=== PATIENT | female | born 1990 | race Caucasian/White ===

== ENCOUNTER 2016-04-26 17:09 | Emergency (ER) | payer OTHER ==
[2016-04-26 17:28] VITALS: BP 110/62
== END 2016-04-26 19:41 | disposition left against medical advice (07) ==
LOC: ED 17:09
DX: R11.10 Vomiting, unspecified (principal)

== ENCOUNTER 2016-04-27 18:13 | Emergency (ER) | payer OTHER ==
[2016-04-27] MEDS ORDERED: cefTRIAXone VIAL(*) 1,000 MG in NS 0.9% 50 ML* 50 ML IVPB ONE (18:50)
[2016-04-27] MEDS ORDERED: NS 0.9% 1000 ML* 1,000 ML BOLUS ONE (18:50)
--- NOTE | 2016-04-27 19:15 | UC ---
Respiratory Complaint HPI - HPI Summary HPI Summary: 26 YO FEMALE PRESENTS WITH A 7 DAY HX OF FEVER/CHILLS/COUGH/SOB/FATIGUE HAS BEEN ANOREXIC AND HAD NAUSEA NO VOMITING MYALGIAS AND LEG CRAMPS NO HER ABD HURTS WHEN SHE COUGH NO UTI SYMPTOMS URINE HAS BEEN DARK - History of Current Complaint Chief Complaint: UC Stated Complaint: ABD PAIN,DIZZY,BLEEDING Time Seen by Provider: 04/27/16 18:37 Hx Obtained From: Patient Hx Last Menstrual Period: 04/16/16 Onset/Duration: Gradual Onset, Lasting Days - 7 Timing: Constant Severity Initially: Mild Severity Currently: Severe Pain Intensity: 8 Pain Scale Used: 0-10 Numeric Character: Cough: Productive Aggravating Factors: Exertion, Deep Breaths Alleviating Factors: Nothing Associated Signs And Symptoms: Positive: Dyspnea, Fever, Chills. Negative: Pleuritic Chest Pain, Wheezing, Hemoptysis, Dizziness, Calf Pain, Calf Swelling , Edema, URI, Nasal Congestion, Hoarseness - Allergies/Home Medications Allergies/Adverse Reactions: Allergies Allergy/AdvReac Type Severity Reaction Status Date / Time No Known Allergies Allergy Verified 04/27/16 18:32 PMH/Surg Hx/FS Hx/Imm Hx Endocrine History Of: Denies: Diabetes, Thyroid Disease Cardiovascular History Of: Denies: Cardiac Disorders, Hypertension Respiratory History Of: Reports: Pneumonia - X1 Denies: COPD, Asthma GI/ History Of: Denies: Ulcer Psychological History Of: Reports: Anxiety - Surgical History Surgical History: Yes Surgery Procedure, Year, and Place: DENTAL EXTRACTIONS - Family History Known Family History: Positive: Hypertension Family History: NON CONTRIBUTORY - Social History Alcohol Use: Occasionally Alcohol Amount: TWICE A WEEK Substance Use Type: Marijuana Substance Use Comment - Amount & Last Used: none since Smoking Status (MU): Heavy Every Day Tobacco Smoker Type: Cigarettes Amount Used/How Often: 1/2 ppd Length of Time of Smoking/Using Tobacco: started age 13 Have You Smoked in the Last Year: Yes Household Exposure Type: Cigarettes - Immunization History Most Recent Influenza Vaccination: Most Recent Tetanus Shot: 04/22/14 Most Recent Pneumonia Vaccination: na Review of Systems Constitutional: Fever, Chills, Fatigue Eyes: Negative ENT: Negative Respiratory: Shortness Of Breath, Cough Gastrointestinal: Abdominal Pain - WHEN COUGHING Genitourinary: Hematuria - ? Motor: Negative Neurovascular: Negative Musculoskeletal: Myalgia Neurological: Headache Psychological: Negative All Other Systems Reviewed And Are Negative: Yes Physical Exam Triage Information Reviewed: Yes Appearance: Well-Appearing, No Pain Distress, Well-Nourished Vital Signs: Initial Vital Signs Temp 101.2 F 04/27/16 18:26 Pulse 137 04/27/16 18:26 Resp 14 04/27/16 18:26 BP 111/70 04/27/16 18:26 Pulse Ox 93 04/27/16 18:26 Vital Signs Reviewed: Yes Eyes: Positive: Conjunctiva Clear ENT: Positive: Hearing grossly normal, Pharynx normal, TMs normal. Negative: Nasal congestion, Nasal drainage, Trismus, Muffled/hoarse voice Neck exam: Normal Neck: Positive: Supple, Nontender, No Lymphadenopathy Respiratory: Positive: Chest non-tender, No respiratory distress, No accessory muscle use, Rhonchi, Wheezing Cardiovascular: Positive: RRR, No Murmur, Tachycardia - STATES SHE IS ALWAYS TACHYCARDIC Abdomen Description: Positive: Nontender, Soft. Negative: CVA Tenderness (R), CVA Tenderness (L) Musculoskeletal: Positive: ROM Intact, No Edema Neurological: Positive: Alert, Muscle Tone Normal Psychological Exam: Normal Skin Exam: Normal Skin: Negative: rashes UC Diagnostic Evaluation - Laboratory O2 Sat by Pulse Oximetry: 93 - LOW - Radiology Xray Interpretation: Positive (See Comments) Radiology Interpretation Completed By: Radiologist Re-Evaluation - Re-Evaluation First Eval Re-Evaluation Time: 21:37 Change: Improved - WANT TO GO HOME Respiratory Course/Dx - Course Course Of Treatment: AT DD/C FEELS BETTER. DECLINES TRANSFER TO [facility] ED - Differential Dx/Diagnosis Provider Diagnoses: PNEUMONIA. DEHYDRATION Discharge - Discharge Plan Condition: Stable Disposition: HOME Prescriptions: Amoxicillin/Clavulanate TAB* [Augmentin TAB 875*] 875 mg PO BID #20 tab Ondansetron TAB* [Zofran Tab*] 4 mg PO Q6H PRN #10 tab PRN Reason: Nausea Referrals: No Primary Care Phys,NOPCP [Primary Care Provider] -
--- NOTE | 2016-04-27 19:21 | RAD ---
Indication: Cough and fever. 2 views of the chest are reviewed including dual energy PA views. Airspace disease is noted in the lung bases worse on the right than on the left. This is consistent with bibasilar pneumonia. There may be some underlying interstitial disease noted. IMPRESSION: Bibasilar airspace disease worse on the right than on the left consistent with pneumonia. This was not present on prior exams.
[2016-04-27] MEDS ORDERED: cefTRIAXone VIAL(*) 1,000 MG VIAL ONE (19:46)
[2016-04-27] MEDS ORDERED: Ondansetron INJ* 2 MG/ML VIAL IV ONE (20:29)
[2016-04-27] MEDS ORDERED: Ipratropium 0.5MG/2.5ML NEB* 0.5 MG/2.5 ML NEB.SOLN INH ONE (20:29)
[2016-04-27] MEDS ORDERED: Albuterol 2.5 MG/3 ML NEB.SOL* (0.083%) INH ONE (20:29)
[2016-04-27 21:17] VITALS: BP 102/63
[2016-04-27] MEDS ORDERED: Albuterol HFA INHALER* 8 gm MDI INH ONE (21:34)
[2016-04-28 10:29] LABS: Hematocrit 35 % (35-47); Hemoglobin 11.8 g/dl (12.0-16.0); Mean Corpuscular HGB Conc 33 g/dl (31-36); Mean Corpuscular Hemoglobin 28 pg (27-31); Mean Corpuscular Volume 83 fL (80-97); Red Blood Count 4.28 10^6/ul (4.0-5.4); Red Cell Distribution Width 15 % (10.5-15); White Blood Count 17.8 10^3/ul (3.5-10.8)
[2016-04-28 10:31] LABS: Comments Flag Yes
[2016-04-28 10:33] LABS: Add Diff/Slide Review? Slide Review Added
[2016-04-28 11:13] LABS: Mean Platelet Volume 11 um3 (7.4-10.4)
== END 2016-04-27 22:03 | disposition home or self-care (01) ==
LOC: UCEAST 18:13
DX: J18.9 Pneumonia, unspecified organism (principal); E86.0 Dehydration; Z32.02 Encounter for pregnancy test, result negative; F17.210 Nicotine dependence, cigarettes, uncomplicated
CPT/HCPCS: 36415; 71020; 81002; 81025; 85025; 87086; 87502; 96361; 96365; 96375; 96376; 99213; A9270-GY; G0463; J0696; J2405; J7644

== ENCOUNTER 2016-08-27 10:27 | Emergency (ER) | payer OTHER ==
[2016-08-27 10:50] VITALS: BP 123/86
--- NOTE | 2016-08-27 11:35 | UC ---
Ritu Billings Matthew, [facility] on 08/27/16 at 1126 . Complaint Female HPI - HPI Summary HPI Summary: In Room Note: A 26 y/o female presents to c/o gradually worsening dysuria since a week ago. She's also c/o of constant vaginal bleeding and lower abdominal cramping since 3 days ago. Associated symptoms include vaginal discharge today w/ green mucous, back pain - since 2 days ago, nausea, and fatigue. She denies fever, vomiting, diarrhea, dizziness, and SOB. The back pain pain is worse lying down. She took plan B 4-5 days ago after unprotected intercourse and the vaginal bleeding began the next day. Initially it was brown in color. She states that amount is similar to a period. She's taken plan B in the past without compilation or bleeding. LNMP was the first of the month. No Hx of kidney infections. Her last UTI was when she was 16 y/o. Possible Hx of ovarian cyst. FHx of HTN and PR - mother. The patient has been 3 times. Note: Patient here for possible UTI. PMHx significant for visit on 06/28/15 for vaginal bleeding with prior Hx of a chemical 3 weeks prior to that visit. Diagnosis at that time was subacute endometritis. Nurse's Note: STARTED WITH PAIN ON URINATION ABOUT 1 WEEK AGO. NOW THINKING IT IS IN HER KIDNEYS. HAD ONE UTI WHEN SHE WAS 16. NO HX OF KIDNEY INFECTIONS. ALSO STARTED WITH VAGINAL BLEEDING. SHE HAS ALREADY HAD HER NORMAL PERIOD SO SHE IS CONCERNED. - History Of Current Complaint Chief Complaint: UCGU Stated Complaint: KIDNEY INFECTION COMPLAINT Time Seen by Provider: 08/27/16 10:44 Hx Obtained From: Patient Hx Last Menstrual Period: 04/16/16 ?: No Onset/Duration: Lasting Days, Still Present Timing: Constant Severity Initially: Mild Severity Currently: Mild Pain Intensity: 7 Pain Scale Used: 0-10 Numeric Character: Cramping Aggravating Factor(s): Urination Associated Signs And Symptoms: Positive: Back Pain, Vaginal Bleeding/Discharge, Vaginal Discharge, Nausea. Negative: Fever, Vomiting(# Of Episodes =) - Allergies/Home Medications Allergies/Adverse Reactions: Allergies Allergy/AdvReac Type Severity Reaction Status Date / Time No Known Allergies Allergy Verified 08/27/16 10:41 Home Medications: Home Medications Atomoxetine (NF) [Strattera (NF)] 1 tab PO DAILY 08/27/16 [History Confirmed ] busPIRone TAB* [Buspar TAB*] 1 tab PO TID 08/27/16 [History Confirmed 08/27/16] PMH/Surg Hx/FS Hx/Imm Hx Endocrine History Of: Denies: Diabetes, Thyroid Disease Cardiovascular History Of: Denies: Cardiac Disorders, Hypertension Respiratory History Of: Reports: Pneumonia - X1 Denies: COPD, Asthma GI/ History Of: Denies: Ulcer Psychological History Of: Reports: Anxiety - Surgical History Surgical History: Yes Surgery Procedure, Year, and Place: DENTAL EXTRACTIONS - Family History Known Family History: Positive: Hypertension Family History: FHx of [place] - Mother - Social History Alcohol Use: Occasionally Alcohol Amount: TWICE A WEEK Substance Use Type: Marijuana Substance Use Comment - Amount & Last Used: none since Smoking Status (MU): Heavy Every Day Tobacco Smoker Type: Cigarettes Amount Used/How Often: 1/2 ppd Length of Time of Smoking/Using Tobacco: started age 13 Have You Smoked in the Last Year: Yes Household Exposure Type: Cigarettes - Immunization History Most Recent Influenza Vaccination: Most Recent Tetanus Shot: 04/22/14 Most Recent Pneumonia Vaccination: na Review of Systems Constitutional: Fatigue Skin: Negative Eyes: Negative ENT: Negative Respiratory: Negative Cardiovascular: Negative Gastrointestinal: Abdominal Pain - lower abdominal cramping, Other - Nausea Genitourinary: Dysuria, Other - vaginal discharge, vaginal bleeding Motor: Negative Neurovascular: Negative Musculoskeletal: Myalgia - back pain Neurological: Negative Psychological: Negative All Other Systems Reviewed And Are Negative: Yes Physical Exam Triage Information Reviewed: Yes Appearance: No Pain Distress, Well-Nourished Vital Signs: Temp Pulse Resp BP Pulse Ox 97.7 F 91 16 123/86 99 08/27/16 10:44 08/27/16 10:44 08/27/16 10:44 08/27/16 10:44 08/27/16 10:44 Vital Signs Reviewed: Yes Eyes: Positive: Conjunctiva Clear ENT: Positive: Hearing grossly normal. Negative: Muffled/hoarse voice Neck: Positive: Supple, Nontender Respiratory: Positive: Chest non-tender, Lungs clear, Normal breath sounds Cardiovascular: Positive: RRR, No Murmur Abdomen Description: Positive: No Organomegaly, Soft, CVA Tenderness (R), CVA Tenderness (L), Other: - LLQ AND RLQ ABDOMINAL TENDERNESS THATS WORSE ON THE LLQ; TENDERNESS TO PERCUSSION BILATERALLY Bowel Sounds: Positive: Present Musculoskeletal: Positive: Strength Intact - WOMACK Neurological: Positive: Alert Psychological: Positive: Age Appropriate Behavior Skin Exam: Normal Complaint Female Dx - Course Course Of Treatment: The patient appears to have a UTI. Her test is negative, so its doubtful she has an ectopic . However, she does have vaginal bleeding after taking plan B 5 days ago and significant lower abdominal cramping. She also had a Hx of endometritis. She also c/o of vaginal discharge. The possibility of endometritis or another cause for vaginal bleeding needs to be explored. In discussion with the patient we decided her most appropriate treatment would be provided at [facility]. I discussed this with Dr. Souza at 11: 18. Patient will travel by private car to the ED. Her vital signs are stable. DOCUMENTATION NOTE: Medications have been included in the original chart and reviewed. Patient is Urgent/Emergent. BP elevated due to current condition w/o HTN in PMH. - Differential Dx/Diagnosis Provider Diagnoses: 1. Urinary tract infection. 2. Vaginal bleeding unclear etiology 3. Lower abdominal pain - Physician Notifications Discussed Patient Care With: Dr. Souza (ED Physician) at 11:18 -- Notified of patient's history and accepts transfer of the patient. Discharge - Discharge Plan Condition: Stable Disposition: TRANS HIGHER LVL OF CARE FAC Patient Education Materials: Urinary Tract Infection in Women (ED), Endometritis (ED) Forms: *Work Release Referrals: No Primary Care Phys,NOPCP [Primary Care Provider] - Additional Instructions: WE DISCUSSED: GO TO ED RIGHT NOW. YOU WILL NEED FURTHER EVALUATION FOR YOUR DISCOMFORT AND VAGINAL BLEEDING. YOU ALSO APPEAR TO HAVE A URINARY TRACT INFECTION AND POSSIBLE KIDNEY INFECTION. The documentation as recorded by the Ritu lunsford Matthew accurately reflects the service I personally performed and the decisions made by me, Carlos Bustos MD.
== END 2016-08-27 11:32 | disposition left against medical advice (07) ==
LOC: UCEAST 10:27
DX: N39.0 Urinary tract infection, site not specified (principal); N93.9 Abnormal uterine and vaginal bleeding, unspecified; R10.30 Lower abdominal pain, unspecified; F17.210 Nicotine dependence, cigarettes, uncomplicated
CPT/HCPCS: 81003; 84702; 87077; 87086; 99213; G0463

== ENCOUNTER 2016-08-27 12:19 | Emergency (ER) | payer OTHER ==
[2016-08-27 12:39] VITALS: BP 118/94
[2016-08-27 13:18] LABS: Hematocrit 40 % (35-47); Hemoglobin 13.1 g/dl (12.0-16.0); Mean Corpuscular HGB Conc 33 g/dl (31-36); Mean Corpuscular Hemoglobin 28 pg (27-31); Mean Corpuscular Volume 84 fL (80-97); Mean Platelet Volume 8 um3 (7.4-10.4); Red Blood Count 4.74 10^6/ul (4.0-5.4); Red Cell Distribution Width 15 % (10.5-15); White Blood Count 8.5 10^3/ul (3.5-10.8)
[2016-08-27] MEDS: NS 0.9% 1000 ML* 2,000 ML IV ONE ×2 (13:30→13:31)
[2016-08-27 13:36] LABS: ALT 9 U/L (7-52); AST 13 U/L (13-39); Albumin 4.1 g/dL (3.2-5.2); Alkaline Phosphatase 53 U/L (34-104); Anion Gap 7 mmol/L (2-11); BUN/Creatinine Ratio 18.2 (8-20); Blood Urea Nitrogen 12 mg/dL (6-24); C Reactive Protein 6.45 mg/L (< 5.00); CO2 Carbon Dioxide 24 mmol/L (22-32); Calcium 8.8 mg/dL (8.6-10.3); Chloride 104 mmol/L (101-111); EGFR African American 139.2 (>60); EGFR Non-African American 108.3 (>60); Globulin 2.9 g/dL (2-4); Glucose 96 mg/dL (70-100); Lipase 16 U/L (11.0-82.0); Potassium 3.9 mmol/L (3.5-5.0); Sodium 135 mmol/L (133-145)
[2016-08-27 14:29] LABS: Urine Bacteria Absent (Absent); Urine Bilirubin Negative (Negative); Urine Glucose Negative (Negative); Urine Nitrite Negative (Negative)
--- NOTE | 2016-08-27 15:02 | ED ---
Aimee Billings Michael, scribed for Dae Hernandez MD on 08/27/16 at 1317 . Abdominal Pain/Female - HPI Summary HPI Summary: 26 y/o female comes to the ED from [facility] presenting with cramping lower abd pain that started . The pt reports that the abd pain is constant, and it is slightly alleviated with Ibuprofen. The pain radiates to the flank bilaterally, which is aggravated with palpation. Her LNMP was on 08/14/16, and she took Plan B 4-5 days ago. Since taking Plan B, the pt has c/o vaginal bleeding and vaginal discharge. She was dx with a UTI last week and continues to experience dysuria. - History of Current Complaint Chief Complaint: EDAbdPain Stated Complaint: CRAMPING/VAGINAL BLEEDING SENT FROM [facility] Time Seen by Provider: 08/27/16 13:11 Hx Obtained From: Patient, Medical Records Hx Last Menstrual Period: 04/16/16 Onset/Duration: Gradual Onset, Still Present Timing: Constant Severity Initially: Moderate Severity Currently: Moderate Pain Intensity: 7 Pain Scale Used: 0-10 Numeric Location: Discrete At: RLQ, Discrete At: LLQ Radiates: Yes Radiates to: Flank Character: Cramping Aggravating Factor(s): Nothing Alleviating Factor(s): Medications Associated Signs and Symptoms: Positive: Urinary Symptoms - dysuria, Vaginal Bleeding, Vaginal Discharge, Other: - flank pain Allergies/Adverse Reactions: Allergies Allergy/AdvReac Type Severity Reaction Status Date / Time No Known Allergies Allergy Verified 08/27/16 12:39 PMH/Surg Hx/FS Hx/Imm Hx Endocrine/Hematology History: Denies: Hx Diabetes, Hx Thyroid Disease Cardiovascular History: Denies: Hx Hypertension Respiratory History: Reports: Hx Pneumonia - X1 Denies: Hx Asthma, Hx Chronic Obstructive Pulmonary Disease (COPD) GI History: Denies: Hx Ulcer Psychiatric History: Reports: Hx Anxiety, Other Psychiatric Issues/Disorders - bipolar - Surgical History Surgery Procedure, Year, and Place: DENTAL EXTRACTIONS Infectious Disease History: No Infectious Disease History: Denies: Hx Clostridium Difficile, Hx Hepatitis, Hx Human Immunodeficiency Virus (HIV), Hx of Known/Suspected MRSA, Hx Shingles, Hx Tuberculosis, Hx Known/ Suspected VRE, Hx Known/Suspected VRSA, History Other Infectious Disease, Traveled Outside the [place] in Last 30 Days - Family History Known Family History: Positive: Hypertension Family History: FHx of [place] - Mother - Social History Occupation: Employed Full-time Lives: With Family Alcohol Use: Occasionally Alcohol Amount: TWICE A WEEK Substance Use Type: Reports: Marijuana Substance Use Comment - Amount & Last Used: none since Hx Tobacco Use: Yes Smoking Status (MU): Heavy Every Day Tobacco Smoker Type: Cigarettes Amount Used/How Often: 1/2 ppd Length of Time of Smoking/Using Tobacco: started age 13 Have You Smoked in the Last Year: Yes Review of Systems Positive: Abdominal Pain Positive: dysuria, other - vaginal bleeding. vaginal discharge. Positive: Other - flank pain All Other Systems Reviewed And Are Negative: Yes Physical Exam Triage Information Reviewed: Yes Vital Signs On Initial Exam: Initial Vitals Temp Pulse Resp BP Pulse Ox 97.9 F 117 18 118/94 100 08/27/16 12:35 08/27/16 12:35 08/27/16 12:35 08/27/16 12:35 08/27/16 12:35 Vital Signs Reviewed: Yes Appearance: Positive: Well-Appearing, No Pain Distress Skin: Positive: Warm, Skin Color Reflects Adequate Perfusion, Dry Head/Face: Positive: Normal Head/Face Inspection Eyes: Positive: Normal ENT: Positive: Normal ENT inspection Neck: Positive: Supple, Nontender Respiratory/Lung Sounds: Positive: Clear to Auscultation, Breath Sounds Present Cardiovascular: Positive: RRR Abdomen Description: Positive: Nontender, Soft Bowel Sounds: Positive: Present Musculoskeletal: Positive: Normal Neurological: Positive: Normal Psychiatric: Positive: Affect/Mood Appropriate Diagnostics - Vital Signs Vital Signs Temp Pulse Resp BP Pulse Ox 08/27/16 12:35 97.9 F 117 18 118/94 100 - Laboratory Lab Results: Lab Results 08/27/16 08/27/16 08/27/16 Range/Units 13:10 13:10 13:10 WBC 8.5 (3.5-10.8) 10^3/ul RBC 4.74 (4.0-5.4) 10^6/ul Hgb 13.1 (12.0-16.0) g/dl Hct 40 (35-47) % MCV 84 (80-97) fL MCH 28 (27-31) pg MCHC 33 (31-36) g/dl RDW 15 (10.5-15) % Plt Count 248 (150-450) 10^3/ul MPV 8 (7.4-10.4) um3 Neut % (Auto) 71.2 (38-83) % Lymph % (Auto) 21.7 L (25-47) % Cotton % (Auto) 5.5 (1-9) % Eos % (Auto) 1.1 (0-6) % Baso % (Auto) 0.5 (0-2) % Absolute Neuts (auto) 6.1 (1.5-7.7) 10^3/ul Absolute Lymphs (auto) 1.8 (1.0-4.8) 10^3/ul Absolute Monos (auto) 0.5 (0-0.8) 10^3/ul Absolute Eos (auto) 0.1 (0-0.6) 10^3/ul Absolute Basos (auto) 0 (0-0.2) 10^3/ul Absolute Nucleated RBC 0.01 10^3/ul Nucleated RBC % 0.1 INR (Anticoag Therapy) 0.95 (0.89-1.11) APTT 31.4 (26.0-36.3) seconds Sodium 135 (133-145) mmol/L Potassium 3.9 (3.5-5.0) mmol/L Chloride 104 (101-111) mmol/L Carbon Dioxide 24 (22-32) mmol/L Anion Gap 7 (2-11) mmol/L BUN 12 (6-24) mg/dL Creatinine 0.66 (0.51-0.95) mg/dL Est GFR ( Amer) 139.2 (>60) Est GFR (Non-Af Amer) 108.3 (>60) BUN/Creatinine Ratio 18.2 (8-20) Glucose 96 (70-100) mg/dL Lactic Acid (0.5-2.0) mmol/L Calcium 8.8 (8.6-10.3) mg/dL Magnesium 2.0 (1.9-2.7) mg/dL Total Bilirubin 0.40 (0.2-1.0) mg/dL AST 13 (13-39) U/L ALT 9 (7-52) U/L Alkaline Phosphatase 53 (34-104) U/L C-Reactive Protein 6.45 H (< 5.00) mg/L Total Protein 7.0 (6.4-8.9) g/dL Albumin 4.1 (3.2-5.2) g/dL Globulin 2.9 (2-4) g/dL Albumin/Globulin Ratio 1.4 (1-3) Lipase 16 (11.0-82.0) U/L Beta HCG, Quant < 0.60 mIU/mL Urine Color Urine Appearance Urine pH (5-9) Ur Specific [place] (1.010-1.030) Urine Protein (Negative) Urine Ketones (Negative) Urine Blood (Negative) Urine Nitrate (Negative) Urine Bilirubin (Negative) Urine Urobilinogen (Negative) Ur Leukocyte Esterase (Negative) Urine WBC (Auto) (Absent) Urine RBC (Auto) (Absent) Ur Squamous Epith Cells (Absent) Urine Bacteria (Absent) Urine Glucose (Negative) 08/27/16 08/27/16 Range/Units 13:10 14:10 WBC (3.5-10.8) 10^3/ul RBC (4.0-5.4) 10^6/ul Hgb (12.0-16.0) g/dl Hct (35-47) % MCV (80-97) fL MCH (27-31) pg MCHC (31-36) g/dl RDW (10.5-15) % Plt Count (150-450) 10^3/ul MPV (7.4-10.4) um3 Neut % (Auto) (38-83) % Lymph % (Auto) (25-47) % Cotton % (Auto) (1-9) % Eos % (Auto) (0-6) % Baso % (Auto) (0-2) % Absolute Neuts (auto) (1.5-7.7) 10^3/ul Absolute Lymphs (auto) (1.0-4.8) 10^3/ul Absolute Monos (auto) (0-0.8) 10^3/ul Absolute Eos (auto) (0-0.6) 10^3/ul Absolute Basos (auto) (0-0.2) 10^3/ul Absolute Nucleated RBC 10^3/ul Nucleated RBC % INR (Anticoag Therapy) (0.89-1.11) APTT (26.0-36.3) seconds Sodium (133-145) mmol/L Potassium (3.5-5.0) mmol/L Chloride (101-111) mmol/L Carbon Dioxide (22-32) mmol/L Anion Gap (2-11) mmol/L BUN (6-24) mg/dL Creatinine (0.51-0.95) mg/dL Est GFR ( Amer) (>60) Est GFR (Non-Af Amer) (>60) BUN/Creatinine Ratio (8-20) Glucose (70-100) mg/dL Lactic Acid 1.0 (0.5-2.0) mmol/L Calcium (8.6-10.3) mg/dL Magnesium (1.9-2.7) mg/dL Total Bilirubin (0.2-1.0) mg/dL AST (13-39) U/L ALT (7-52) U/L Alkaline Phosphatase (34-104) U/L C-Reactive Protein (< 5.00) mg/L Total Protein (6.4-8.9) g/dL Albumin (3.2-5.2) g/dL Globulin (2-4) g/dL Albumin/Globulin Ratio (1-3) Lipase (11.0-82.0) U/L Beta HCG, Quant mIU/mL Urine Color Straw Urine Appearance Clear Urine pH 6.0 (5-9) Ur Specific [place] 1.003 L (1.010-1.030) Urine Protein Negative (Negative) Urine Ketones Negative (Negative) Urine Blood 1+ H (Negative) Urine Nitrate Negative (Negative) Urine Bilirubin Negative (Negative) Urine Urobilinogen Negative (Negative) Ur Leukocyte Esterase 2+ H (Negative) Urine WBC (Auto) 3+(>20/hpf) H (Absent) Urine RBC (Auto) 1+(3-5/hpf) H (Absent) Ur Squamous Epith Cells Present H (Absent) Urine Bacteria Absent (Absent) Urine Glucose Negative (Negative) Result Diagrams: 08/27/16 13:10 08/27/16 13:10 Lab Statement: Any lab studies that have been ordered have been reviewed, and results considered in the medical decision making process. Abdominal Pain Fem Course/Dx - Course Course Of Treatment: To my exam, she is nontener or minimally tender, her labs are normal except for a positive U/A, and she is afebrile. I seel no evidence for endometitis and I will treat her UTI. Discussed patient care with Dr. Covington (OBGYN) at 1355. - Diagnoses Provider Diagnoses: UTI (urinary tract infection) Discharge - Discharge Plan Condition: Stable Disposition: HOME Prescriptions: Ciprofloxacin TAB* [Cipro Tab*] 500 mg PO BID #20 tab Phenazopyridine 200 mg (NF) [Pyridium 200 MG tab] 200 mg PO TID #9 tab Patient Education Materials: Urinary Tract Infection in Women (ED) Forms: *Work Release Referrals: [facility] PHYSICIAN REFERRAL [Outside] Additional Instructions: Please follow up with [facility] Physician Referral within the next 3-5 days. If your symptoms worsen please return to the ED. The documentation as recorded by the Aimee lunsford Michael accurately reflects the service I personally performed and the decisions made by me, Dae Hernandez MD.
== END 2016-08-27 15:05 | disposition home or self-care (01) ==
LOC: ED 12:19
DX: N39.0 Urinary tract infection, site not specified (principal); F17.210 Nicotine dependence, cigarettes, uncomplicated
CPT/HCPCS: 36415; 80053; 81003; 81015; 83605; 83690; 83735; 84702; 85025; 85610; 85730; 86140; 96360; 99282

== ENCOUNTER 2017-01-08 20:47 | Emergency (ER) | payer SELFPAY ==
[2017-01-08 22:46] VITALS: BP 118/78
== END 2017-01-08 23:58 | disposition left against medical advice (07) ==
LOC: ED 20:47
DX: S61.512A Laceration without foreign body of left wrist, initial encounter (principal); X58.XXXA Exposure to other specified factors, initial encounter; Y92.9 Unspecified place or not applicable; Z53.21 Procedure and treatment not carried out due to patient leaving prior to being seen by health care provider
CPT/HCPCS: 99282

== ENCOUNTER 2017-02-09 15:24 | Emergency (ER) | payer OTHER ==
[2017-02-09 15:37] VITALS: BP 124/86
--- NOTE | 2017-02-09 15:43 | UC ---
Respiratory Complaint HPI - HPI Summary HPI Summary: 26 year old female presents with complains of left sided back pain secondary to a severe cough. - History of Current Complaint Chief Complaint: UCRespiratory Stated Complaint: CHEST CONGESTION, AND SHOULDER PAIN Time Seen by Provider: 02/09/17 15:39 Hx Last Menstrual Period: now Onset/Duration: Gradual Onset Severity Initially: Moderate Severity Currently: Moderate Pain Scale Used: 0-10 Numeric - 5 - Allergies/Home Medications Allergies/Adverse Reactions: Allergies Allergy/AdvReac Type Severity Reaction Status Date / Time No Known Allergies Allergy Verified 02/09/17 15:37 PMH/Surg Hx/FS Hx/Imm Hx Previously Healthy: Yes - Surgical History Surgical History: None Surgery Procedure, Year, and Place: DENTAL EXTRACTIONS - Family History Known Family History: Positive: None - reviewed & noncontributory, Hypertension Family History: FHx of [place] - Mother - Social History Alcohol Use: Occasionally Alcohol Amount: TWICE A WEEK Substance Use Type: Marijuana Substance Use Comment - Amount & Last Used: none since Smoking Status (MU): Heavy Every Day Tobacco Smoker Type: Cigarettes Amount Used/How Often: 1/2 ppd Length of Time of Smoking/Using Tobacco: started age 13 Have You Smoked in the Last Year: Yes Household Exposure Type: Cigarettes - Immunization History Most Recent Influenza Vaccination: Most Recent Tetanus Shot: 04/22/14 Most Recent Pneumonia Vaccination: na Review of Systems Constitutional: Negative Skin: Negative Eyes: Negative ENT: Nasal Discharge, Sinus Congestion, Sinus Pain/Tenderness Respiratory: Cough Cardiovascular: Negative Gastrointestinal: Negative Genitourinary: Negative Motor: Negative Neurovascular: Negative Musculoskeletal: Negative Neurological: Negative Psychological: Negative All Other Systems Reviewed And Are Negative: Yes Physical Exam Triage Information Reviewed: Yes Vital Signs: Initial Vital Signs Temp 37.1 C 02/09/17 15:32 Pulse 95 02/09/17 15:32 Resp 22 02/09/17 15:32 BP 124/86 02/09/17 15:32 Pulse Ox 100 02/09/17 15:32 Eye Exam: Normal ENT Exam: Normal Dental Exam: Normal Neck exam: Normal Neck: Positive: 1 Respiratory: Positive: Rhonchi, Wheezing Cardiovascular Exam: Normal Abdominal Exam: Normal Musculoskeletal Exam: Normal Neurological Exam: Normal Psychological Exam: Normal Skin Exam: Normal UC Diagnostic Evaluation - Laboratory O2 Sat by Pulse Oximetry: 100 Respiratory Course/Dx - Course Course Of Treatment: patient's xray did not show pneumonia. if symptoms get worse patient told to go to the er. - Differential Dx/Diagnosis Provider Diagnoses: cough. wheezing. left upper back pain Discharge - Discharge Plan Condition: Stable Disposition: HOME Prescriptions: Albuterol HFA INHALER* [Ventolin HFA Inhaler*] 1 puff INH Q6H PRN #1 mdi PRN Reason: Wheezing Azithromyxin MARTY (NF) [Z-Marty (Zithromax) 250 mg tabs #6] 2 tab PO .TODAY, THEN 1 DAILY #6 tab Methylprednisolone [Medrol Dosepak 4 MG*] 4 mg PO .SEE MARTY INSTRUCTION #21 tab guaiFENesin/CODIEN 100MG-10MG* [Robitussin AC 100Mg-10Mg*] 5 ml PO Q8H PRN #120 ml MDD 15 ml PRN Reason: Cough Patient Education Materials: Acute Cough (ED) Forms: *Work Release Referrals: Kayy Schwab PA [Primary Care Provider] -
--- NOTE | 2017-02-09 16:12 | RAD ---
Indication: Cough. 2 views of the chest including dual energy PA views demonstrates no mediastinal shift. Heart is of normal size and configuration. Lungs are clear. Compared to previous exam of April 27, 2016 right lower lobe infiltrate is no longer present. IMPRESSION: No active cardiopulmonary disease is noted.
== END 2017-02-09 16:25 | disposition home or self-care (01) ==
LOC: UCEAST 15:24
DX: M54.6 Pain in thoracic spine (principal); R05 Cough; R06.2 Wheezing; F17.210 Nicotine dependence, cigarettes, uncomplicated
CPT/HCPCS: 71020; 99212; G0463

== ENCOUNTER 2017-03-21 13:34 | Inpatient (IN) | payer OTHER ==
--- NOTE | 2017-03-21 14:45 | RAD ---
HISTORY: Shortness of breath COMPARISONS: February 09, 2017 VIEWS: 1: frontal portable view of the chest at 2:17 PM FINDINGS: LINES AND TUBES: None. CARDIOMEDIASTINAL SILHOUETTE: The cardiomediastinal silhouette is normal for portable technique. PLEURA: The costophrenic angles are sharp. No pleural abnormalities are noted. LUNG PARENCHYMA: The lungs are clear. ABDOMEN: The upper abdomen is clear. There is no subphrenic gas. BONES AND SOFT TISSUES: No bone or soft tissue abnormalities are noted. IMPRESSION: NO ACTIVE CARDIOPULMONARY DISEASE.
[2017-03-21 14:52] LABS: Hematocrit 42 % (35-47); Hemoglobin 14.2 g/dl (12.0-16.0); Mean Corpuscular HGB Conc 34 g/dl (31-36); Mean Corpuscular Hemoglobin 29 pg (27-31); Mean Corpuscular Volume 87 fL (80-97); Mean Platelet Volume 10 um3 (7.4-10.4); Red Blood Count 4.86 10^6/ul (4.0-5.4); Red Cell Distribution Width 14 % (10.5-15); White Blood Count 8.3 10^3/ul (3.5-10.8)
[2017-03-21 15:06] LABS: Anion Gap 10 mmol/L (2-11); BUN/Creatinine Ratio 21.7 (8-20); Blood Urea Nitrogen 15 mg/dL (6-24); CO2 Carbon Dioxide 25 mmol/L (22-32); Chloride 105 mmol/L (101-111); EGFR Non-African American 102.8 (>60); Glucose 91 mg/dL (70-100); Sodium 140 mmol/L (133-145)
[2017-03-21 15:07] LABS: ALT 43 U/L (7-52); AST 64 U/L (13-39); Albumin 4.6 g/dL (3.2-5.2); Alkaline Phosphatase 42 U/L (34-104); Calcium 9.4 mg/dL (8.6-10.3); Creatine Kinase 1148 U/L (10-223); EGFR African American 132.3 (>60); Globulin 2.5 g/dL (2-4); Total Protein 7.1 g/dL (6.4-8.9)
[2017-03-21 15:28] LABS: Acetaminophen < 15 mcg/mL; Alcohol < 10 mg/dL (<10); Salicylate < 2.50 mg/dL (<30)
[2017-03-21] MEDS ORDERED: Potassium Chlor TAB* 20 MEQ TAB.ER PO ONE (16:13)
[2017-03-21] MEDS ORDERED: NS 0.9% 1000 ML* 2,000 ML IV ONE (18:19)
[2017-03-21] MEDS ORDERED: NS 0.9% 1000 ML* 1,000 ML IV ONE (20:19)
[2017-03-21 21:00] LABS: Carbon Monoxide 4.1 % (<4.0); Venous Bicarbonate HCO3 24.8 mmol/L (24-28)
[2017-03-22] MEDS ORDERED: QUEtiapine TAB* 25 MG PO ONE (02:00)
[2017-03-22] MEDS ORDERED: Al Hydrox/Mg Hydrox/Simet LIQ* 30 ML UDC PO PRN (02:21)
[2017-03-22] MEDS: Mouth Piece, Nicotine* 1 EACH CARTRIDGE INH ONE (03:00)
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
[2017-03-22] MEDS: Vitamin THERAPEUTIC TAB PO SCH (09:22)
[2017-03-22 13:05] LABS: Urine Bacteria Absent (Absent); Urine Bilirubin Negative (Negative); Urine Glucose Negative (Negative); Urine Nitrite Negative (Negative)
[2017-03-22 13:17] LABS: Benzodiazepine Urine Screen None Detected (None Detect)
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
[2017-03-22] MEDS: QUEtiapine TAB* 100 MG PO SCH (21:18)
[2017-03-23] MEDS: Vitamin THERAPEUTIC TAB PO SCH (09:31)
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
[2017-03-23] MEDS: Mouth Piece, Nicotine* 1 EACH CARTRIDGE INH ONE (19:31)
[2017-03-23] MEDS ORDERED: Mouth Piece, Nicotine* 1 EACH CARTRIDGE ONE (19:31)
[2017-03-23] MEDS: Nicotine Inhaler* 10 MG AMP INH PRN (19:31)
[2017-03-23] MEDS: QUEtiapine TAB* 100 MG PO SCH (21:54)
[2017-03-24] MEDS: Vitamin THERAPEUTIC TAB PO SCH (09:21)
[2017-03-24] MEDS: Nicotine Inhaler* 10 MG AMP INH PRN ×3 (14:17→23:55)
[2017-03-24] MEDS: QUEtiapine TAB* 100 MG PO SCH (20:56)
[2017-03-25] MEDS: Nicotine Inhaler* 10 MG AMP INH PRN ×2 (03:10→16:38)
[2017-03-25] MEDS: Vitamin THERAPEUTIC TAB PO SCH (07:50)
--- NOTE | 2017-03-25 18:00 | PN ---
Subjective - Subjective Date of Service: 03/25/17 Service Type: 02000 Hosp care 15 min low complexity Subjective: Hermelinda approached to speak with me several times yesterday during the day. When I finally met with her she wanted to know whether she can bring her out patient med here and take them instead of Seroquel. She demands her Adderall and Xenax be allowed here or change her current doctor. She was advised to take current meds. She is focused on the topic and was not interested to talk about anything else. Objective - Appearance Appearance: Healthy Appearing, Thin Framed Dysmorphic Features: No Hygiene: Normal Grooming: Fairly Well Kept - Behavior Psychomotor Activities: Abnormal-Increased Exhibits Abnormal Movement: No - Attitude and Relatedness Attitude and Relatedness: Manipulative Eye Contact: Good - Speech Quality: Pressured Latencies: Short Quantity: Copious - Mood Patient's Decription of Mood: "Terrible" - Affect Observed Affect: Tense Affect Consistent with: Dysphoria - Thought Process Patient's Thought Process: Coherent, Disorganized, Circumstantial Thought Content: No Passive Wish, No Suicidal Planning, No Homicidal Ideation, No Paranoid Ideation - Sensorium Experiencing Hallucinations: No, Sensorium is Clear Type of Hallucinations: Visual: No, Auditory: No, Command: No - Level of Consciousness Level of Consciousness: Alert Orientation: Yes Intact, Yes Orientated to Time, Yes Orientated to Place, Yes Orientated to Person - Impulse Control Impulse Control: Tenuous - Insight and Judgement Insight and Judgement: Impaired - Group Participation Particating in Group Activities: No - Medication Management Medication Management Adherence: No Assessment - Assessment Merits Inpatient Hospitalization: For Immediate Safety, For Stabilization, For Discharge Planning Inpatient DSM-IV Dx: Unspecified Psychotic DO Plan - Plan Treatment Plan: Name: HERMELINDA OG Birthdate: 1990 [id number] Continued Medication Management: Continue Outpt Medication Medications: Current Medications Acetaminophen (Tylenol Tab*) 650 mg PO Q4H PRN PRN Reason: PAIN or TEMP > 101 F Al Hydrox/Mg Hydrox/Simethicone (Maalox Plus*) 30 ml PO Q4H PRN PRN Reason: INDIGESTION Multivitamins (Theragran Tab*) 1 tab PO DAILY [facility] Last Admin: 03/25/17 07:50 Dose: Not Given Nicotine (Nicotine Inhaler*) 10 mg INH Q2H PRN PRN Reason: CRAVING Last Admin: 03/25/17 16:38 Dose: 10 mg Quetiapine Fumarate (Seroquel Tab*) 100 mg PO BEDTIME [facility] Last Admin: 03/24/17 20:56 Dose: Not Given - Discharge Plan Discharge Plan: Drug/Alcohol Rehab
[2017-03-25] MEDS: QUEtiapine TAB* 100 MG PO SCH (22:34)
[2017-03-26] MEDS: Nicotine Inhaler* 10 MG AMP INH PRN ×4 (05:00→22:13)
[2017-03-26] MEDS: QUEtiapine TAB* 100 MG PO SCH (05:00)
[2017-03-26] MEDS: Vitamin THERAPEUTIC TAB PO SCH (07:53)
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
[2017-03-26] MEDS: CMCS:Atomoxetine (NF) 40 MG CAP PO SCH (13:17)
[2017-03-26] MEDS: Acetaminophen TAB* 325 MG PO PRN (16:54)
[2017-03-26] MEDS ORDERED: QUEtiapine TAB* 25 MG PO SCH (21:00)
[2017-03-26] MEDS: Paliperidone TAB* 3 MG TAB PO SCH (21:31)
[2017-03-27] MEDS: Acetaminophen TAB* 325 MG PO PRN (06:39)
[2017-03-27] MEDS: Vitamin THERAPEUTIC TAB PO SCH (09:01)
[2017-03-27] MEDS: CMCS:Atomoxetine (NF) 40 MG CAP PO SCH (09:01)
[2017-03-27] MEDS: Nicotine Inhaler* 10 MG AMP INH PRN ×5 (09:02→20:00)
[2017-03-27] MEDS: Nicotine GUM* 2 MG PO PRN ×4 (12:33→20:01)
--- NOTE | 2017-03-27 12:59 | PN ---
MHU: Group Therapy Note - Service Type Service Type: 06885 Group Psychotherapy - Cognitive Behavioral Group Therapy ( CBT):Patient was attentive and participatory in CBT programming this morning, and remained in good behavioral control. Patient expressed positive insights regarding relevant treatment interventions and goals. Hermelinda remained very defended against discussion addressing utilization of medication. Concerns regarding insight regarding presenting circumstances remain.
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
[2017-03-27] MEDS: Paliperidone TAB* 3 MG TAB PO SCH (20:03)
[2017-03-28] MEDS: Paliperidone TAB* 3 MG TAB PO SCH (00:49)
[2017-03-28] MEDS: Acetaminophen TAB* 325 MG PO PRN ×3 (06:12→20:39)
[2017-03-28] MEDS: Nicotine GUM* 2 MG PO PRN ×5 (06:12→20:39)
[2017-03-28] MEDS: CMCS:Atomoxetine (NF) 40 MG CAP PO SCH (09:04)
[2017-03-28] MEDS: Vitamin THERAPEUTIC TAB PO SCH (09:04)
[2017-03-28] MEDS: Nicotine Inhaler* 10 MG AMP INH PRN ×4 (09:06→20:39)
--- NOTE | 2017-03-28 11:36 | PN ---
MHU: Group Therapy Note - Service Type Service Type: [id number] Group Psychotherapy - Cognitive Behavioral Group Therapy ( CBT):Patient was attentive and participatory in CBT programming this morning, and remained in good behavioral control. Patient expressed positive insights regarding relevant treatment interventions and goals.
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
--- NOTE | 2017-03-28 17:08 | ED ---
Tristen Billings Alfonso, scribed for Monty Garner MD on 03/21/17 at 2054 . Progress - Progress Note Progress Note: This patient was signed out from Dr. Dietz, pending disposition, awaiting labs and MHE. Reevaluation 1: Non rebreather. 100% O2 stat. Pt is delusional and indirect and will not directly answer questions. Repeat labs pending. No obvious FND. The patients condition is stable and will be involuntarily admitted to [facility] by Dr. Rodarte (psychiatrist) with Dx of unspecified psychosis. Course/Dx - Diagnoses Provider Diagnoses: delusional thinking, Carbon monoxide poisoning, Unspecified psychosis The documentation as recorded by the Tristen lunsford Alfonso accurately reflects the service I personally performed and the decisions made by , Monty Garner MD.
[2017-03-29] MEDS: Paliperidone TAB* 3 MG TAB PO SCH (01:15)
[2017-03-29] MEDS: Nicotine GUM* 2 MG PO PRN ×2 (06:00→08:50)
[2017-03-29] MEDS: Nicotine Inhaler* 10 MG AMP INH PRN ×2 (06:00→08:50)
[2017-03-29 07:57] VITALS: BP 116/71
[2017-03-29] MEDS: Vitamin THERAPEUTIC TAB PO SCH (08:47)
[2017-03-29] MEDS: CMCS:Atomoxetine (NF) 40 MG CAP PO SCH (08:48)
[2017-03-29] MEDS: Acetaminophen TAB* 325 MG PO PRN (08:49)
[2017-03-29 09:48] LABS: HDL Cholesterol 47.2 mg/dL
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
[2017-03-29] MEDS ORDERED: risperiDONE TAB* 1 MG PO SCH (21:00)
== END 2017-03-29 11:55 | disposition home or self-care (01) | DRG 885 ==
LOC: ED 13:34 → BSU 23:40
PROVIDERS: ADMIT Psychiatry & Neurology Psychiatry; ATTEND Psychiatry & Neurology Psychiatry
DX: F31.64 Bipolar disorder, current episode mixed, severe, with psychotic features (principal); F11.10 Opioid abuse, uncomplicated; F12.10 Cannabis abuse, uncomplicated; F90.9 Attention-deficit hyperactivity disorder, unspecified type; F41.1 Generalized anxiety disorder; F17.210 Nicotine dependence, cigarettes, uncomplicated; Z81.8 Family history of other mental and behavioral disorders; Z81.3 Family history of other psychoactive substance abuse and dependence; Z79.899 Other long term (current) drug therapy
CPT/HCPCS: 36415; 71010; 80053; 80061; 80307; 80320; 80329; 81003; 81015; 82375; 82550; 82600; 82803; 83036; 85025; 87086; 90853; 93005; 99222; 99231; 99232; 99238; A9270-GY; G0480

== ENCOUNTER 2017-11-14 10:50 | Emergency (ER) | payer OTHER ==
[2017-11-14] MEDS ORDERED: Ketorolac INJ* 30 MG/ML 1 ML VIAL IV PUSH ONE (11:55)
[2017-11-14] MEDS ORDERED: NS 0.9% 1000 ML* 1,000 ML IV ONE (11:55)
[2017-11-14] MEDS ORDERED: Ondansetron INJ* 2 MG/ML VIAL IV ONE (11:56)
--- NOTE | 2017-11-14 11:58 | UC ---
Headache HPI - HPI Summary HPI Summary: headache for 3 days---had a similar head aches years ago, feels a little nauseated, not relief with warm compress rest - History Of Current Complaint Chief Complaint: UCHeadache Stated Complaint: HEADACHE Time Seen by Provider: 11/14/17 11:46 Hx Obtained From: Patient Hx Last Menstrual Period: 11/06/17 ?: No Onset/Duration: Sudden Onset, Lasting Days - 3, Still Present Onset Of Symptoms: Gradual, Still Present Pain Intensity: 8 Pain Scale Used: 0-10 Numeric Timing: Constant Character: Throbbing, Pressure Location of Headache: Frontal Aggravating Factor(s): Nothing Allevating Factor(s): Nothing Associated Signs And Symptoms: Positive: Nausea - Allergies/Home Medications Allergies/Adverse Reactions: Allergies Allergy/AdvReac Type Severity Reaction Status Date / Time No Known Allergies Allergy Verified 11/14/17 11:12 Home Medications: Home Medications Buprenorphine HCl/Naloxone HCl [Zubsolv 5.7-1.4 mg Tablet Sl] 1 tab PO DAILY 05/03 [History Confirmed 11/14/17] PMH/Surg Hx/FS Hx/Imm Hx - Surgical History Surgical History: Yes Surgery Procedure, Year, and Place: DENTAL EXTRACTIONS - Family History Known Family History: Positive: None - reviewed & noncontributory, Hypertension Family History: FHx of [place] - Mother - Social History Occupation: Employed Full-time Lives: With Family Alcohol Use: Occasionally Alcohol Amount: TWICE A WEEK Substance Use Type: Other Substance Use Comment - Amount & Last Used: opiate abuse disorder in remission Smoking Status (MU): Heavy Every Day Tobacco Smoker Type: Cigarettes Amount Used/How Often: 1/2 ppd Length of Time of Smoking/Using Tobacco: started age 13 Have You Smoked in the Last Year: Yes Household Exposure Type: Cigarettes Cessation Counseling: Patient Advised to Stop - Immunization History Most Recent Influenza Vaccination: UNSURE Most Recent Tetanus Shot: 04/22/14 Most Recent Pneumonia Vaccination: na Review of Systems Constitutional: Negative Skin: Negative Eyes: Negative ENT: Negative Respiratory: Negative Cardiovascular: Negative Gastrointestinal: Negative Genitourinary: Negative Motor: Negative Neurovascular: Negative Musculoskeletal: Negative Neurological: Headache Psychological: Negative Is Patient Immunocompromised?: No All Other Systems Reviewed And Are Negative: Yes Physical Exam Triage Information Reviewed: Yes Appearance: Well-Nourished, Pain Distress, Thin Vital Signs: Initial Vital Signs Temp 97.8 F 11/14/17 11:07 Pulse 110 11/14/17 11:07 Resp 20 11/14/17 11:07 BP 125/83 11/14/17 11:07 Pulse Ox 100 11/14/17 11:07 Vital Signs Reviewed: Yes Eye Exam: Normal Eyes: Positive: Conjunctiva Clear ENT Exam: Normal ENT: Positive: Normal ENT inspection, Hearing grossly normal, Pharynx normal, TMs normal. Negative: Nasal congestion, Trismus, Muffled voice, Hoarse voice, Dental tenderness, Sinus tenderness Dental Exam: Normal Neck exam: Normal Neck: Positive: Supple, Nontender, No Lymphadenopathy Respiratory Exam: Normal Respiratory: Positive: Chest non-tender, Lungs clear, Normal breath sounds, No respiratory distress, No accessory muscle use Cardiovascular Exam: Normal Cardiovascular: Positive: RRR, No Murmur, Pulses Normal, Brisk Capillary Refill Abdominal Exam: Normal Abdomen Description: Positive: Nontender, No Organomegaly, Soft. Negative: CVA Tenderness (R), CVA Tenderness (L) Bowel Sounds: Positive: Present Musculoskeletal Exam: Normal Musculoskeletal: Positive: Strength Intact, ROM Intact, No Edema Neurological Exam: Normal Neurological: Positive: Alert, Muscle Tone Normal Psychological Exam: Normal Skin Exam: Normal Headache Course/Dx - Course Course Of Treatment: feeling much better headache resolved---will rst today and follow with pcp prn - Differential Dx/Diagnosis Provider Diagnoses: acute headache Discharge - Sign-Out/Discharge Documenting (check all that apply): Patient Departure - Discharge Plan Condition: Stable Disposition: HOME Patient Education Materials: Acute Headache (ED) Forms: *Work Release Referrals: [facility] [Outside] [facility] [Outside] Kayy Schwab PA [Primary Care Provider] - Additional Instructions: Per institutional requirements, I have reviewed the chart, however, I was not consulted specifically or made aware of this patient by the above midlevel provider. I did not personally evaluate, interact with , or disposition this patient. - Billing Disposition and Condition Condition: STABLE Disposition: Home
[2017-11-14 13:11] VITALS: BP 127/77
== END 2017-11-14 13:30 | disposition home or self-care (01) ==
LOC: UCEAST 10:50
DX: R51 Headache (principal); R11.0 Nausea; F17.210 Nicotine dependence, cigarettes, uncomplicated
CPT/HCPCS: 96360; 96374; 96375; 99212; G0463; J1885; J2405

== ENCOUNTER 2018-04-08 05:20 | Emergency (ER) | payer OTHER ==
[2018-04-08] MEDS ORDERED: NS 0.9% 1000 ML*IV.FLUID IV ONE (05:46)
[2018-04-08 06:05] VITALS: BP 138/94
== END 2018-04-08 06:17 | disposition left against medical advice (07) ==
LOC: ED 05:20
DX: R10.9 Unspecified abdominal pain (principal); Z53.21 Procedure and treatment not carried out due to patient leaving prior to being seen by health care provider